=== PATIENT | female | born 1980 | race Caucasian/White ===

== ENCOUNTER 2020-07-29 09:48 | Outpatient (CLI) | payer OTHER ==
[2020-07-29 14:10] LABS: Hemoglobin 14.6 g/dL (12.0-16.0); Mean Corpuscular HGB CONC 34.2 g/dL (32.0-36.0); Mean Platelet Volume 9.5 fL (7.4-10.4); Platelet Count 231 thou/uL (130-400); RBC Distribution Width 11.1 % (11.5-14.5); Red Blood Cell (RBC) Count 4.18 mill/uL (4.20-5.40); White Blood Cell (WBC) Count 6.8 thou/uL (4.8-10.8)
[2020-07-29 14:13] LABS: BHCG - Serum Negative (NEGATIVE); Pregs Control Background? CLEAR/WHITE (CLR/WHITE); Pregs Control Bar Appear? YES (CONTROL BAR)
[2020-07-30 12:01] LABS: SARS-CoV-2 MS2 Positive; SARS-CoV-2 N Gene Negative; SARS-CoV-2 S Gene Negative; SARS-CoV-2 by NAA Not Detected (NotDetected); SARS-CoV-2 orf1ab Negative
== END 2020-07-29 09:49 | disposition home or self-care (01) ==
LOC: LABBT 09:48
PROVIDERS: ATTEND Obstetrics & Gynecology
DX: Z01.812 Encounter for preprocedural laboratory examination (principal); N39.3 Stress incontinence (female) (male); S31.41XA Laceration without foreign body of vagina and vulva, initial encounter; Z20.828 Contact with and (suspected) exposure to other viral communicable diseases
CPT/HCPCS: 84703; 85027; 86850; 86900; 86901; 87635; U0003

== ENCOUNTER 2020-08-02 10:39 | Day surgery (SDC) | payer OTHER ==
[2020-08-01 12:49] VITALS: BMI 21.9
--- NOTE | 2020-08-02 05:36 | HP ---
REASON FOR ADMISSION: Persistent weakness of perineal body with ulceration at area of old obstetrical laceration. PROCEDURE: Posterior repair with revision of obstetrical laceration. HISTORY OF PRESENT ILLNESS: Ms. Lin is a 40-year-old 2, para 2, status post x2, who has had an area of ulceration that has not healed despite conservative medical management for greater than five years. She desires definitive surgical management. The patient also requested a risk reducing salpingectomy at this time. She was denied secondary to being adopted and having no known family history of ovarian or breast cancer. [employer] HISTORY: As noted. Positive history of dysplasia. Most recent Pap was negative. PAST SURGICAL HISTORY: None. MEDICAL HISTORY: Anxiety. SOCIAL HISTORY: Denies tobacco, alcohol, or drug abuse. MEDICATIONS: 1. Effexor. 2. Celebrex. ALLERGIES: NONE. PHYSICAL EXAMINATION: GENERAL: White female. VITAL SIGNS: 5 feet 2, 131, BMI 24. Blood pressure 132/80, pulse 80, and respirations 18. HEENT: Within normal limits. LUNGS: Clear to auscultation bilaterally. HEART: Regular rhythm. BREASTS: Without masses bilaterally, status post augmentation. ABDOMEN: Soft, nontender. No rebound or guarding. GENITOURINARY: Vulva, without lesions. Vagina, patient has a persistent perineal laxity and a tear measuring 3 x 5 cm. It is ulcerated and axially oriented. Cervix is parous. Uterus is anteverted, 4-week size. Adnexa, no masses bilaterally. EXTREMITIES: No clubbing, cyanosis, or edema. IMPRESSION: Persistent perineal laxity and ulceration from an old obstetrical laceration. PLAN: Perineorrhaphy, possible posterior repair and revision of obstetrical laceration. Patient understands risks and benefits of procedure, including possible persistence and recurrence and prolonged need for avoiding penetrating vaginal intercourse postoperatively. We will administer appropriate antibiotic and DVT prophylaxis. Job ID: [id number]
[2020-08-02] MEDS ORDERED: Fentanyl 250 MCG/5 ML VIAL ONE (11:17)
[2020-08-02] MEDS ORDERED: Gabapentin 300 MG CAP ONE (11:25)
[2020-08-02] MEDS ORDERED: Famotidine/PF 20 mg/2ml Vial ONE (11:25)
[2020-08-02] MEDS ORDERED: CeleCOXIB 100 MG CAP ONE (11:25)
[2020-08-02] MEDS ORDERED: Lidocaine 1% w/Epinephrine 1:100K 20 ML VIAL ONE (12:09)
[2020-08-02] MEDS ORDERED: PROPOFOL 200 MG/20 ML VIAL ONE (12:37)
[2020-08-02] MEDS ORDERED: Lidocaine 1% PF 5 ML VIAL ONE (12:37)
[2020-08-02] MEDS ORDERED: PHENYLEPHRINE-NS 100 MCG/ML 10 ML SYRINGE ONE (12:37)
[2020-08-02] MEDS ORDERED: Dexamethasone 20 MG/5 ML VIAL ONE (12:37)
[2020-08-02] MEDS ORDERED: Ondansetron PF 4 MG/2 ML Vial ONE (12:37)
--- NOTE | 2020-08-02 18:39 | OP ---
DATE OF PROCEDURE: 08/02/2020 PREOPERATIVE DIAGNOSIS: Persistent ulceration of old obstetrical laceration. POSTOPERATIVE DIAGNOSIS: Persistent ulceration of old obstetrical laceration. PROCEDURE PERFORMED: Revision of OB laceration with perineorrhaphy. BOTTOM WHEELER: Janie Sahni PA-C ANESTHESIA: General endotracheal. ESTIMATED BLOOD LOSS: Less than 50 mL. COMPLICATIONS: None. MEDICATIONS: 2 g Ancef preincision. OPERATIVE FINDINGS: 1. Small 3 x 5 mm persistent ulceration at the level of the hymenal ring in the perineal body, excised. 2. Good reapproximation of the vaginal mucosa and reapproximation of perineal body. DISPOSITION: Recovery room in good condition. DESCRIPTION OF PROCEDURE: After obtaining appropriate informed consent, the patient was taken to the operating room with general endotracheal achieved without difficulty. She was prepped and draped in Dario stirrups. Findings as noted in the operative findings were noted. The area for the elliptical area to be excised was delineated using a skin marker and then excised using a 15 blade, undermining the area well. Perineal body was noted to be lax as well, and dissection was carried out laterally with that. The deep tissue and perineal body were pulled back together in a running continuous manner using a 3-0 Monocryl from right to left. Once this reapproximation was performed, and attention had been taken off the mucosa. The mucosa was closed in a running subcuticular manner from left to right perpendicular to the ellipses axis line, completely reapproximating the vaginal mucosa. Approximately 20 mL of lidocaine with epinephrine was injected for hemostasis and analgesia. The patient tolerated the procedure well. Counts were correct, and she was taken to recovery room in good condition. Job ID: [id number]
== END 2020-08-02 14:55 | disposition home or self-care (01) ==
LOC: SDC 10:39
PROVIDERS: ATTEND Obstetrics & Gynecology
PROC: 0HQ9XZZ Repair Perineum Skin, External Approach (ICD-10-PCS; principal; 2020-08-02)
DX: N81.89 Other female genital prolapse (principal); N39.3 Stress incontinence (female) (male); F41.9 Anxiety disorder, unspecified; F90.9 Attention-deficit hyperactivity disorder, unspecified type; Z79.899 Other long term (current) drug therapy; Z87.891 Personal history of nicotine dependence
CPT/HCPCS: 88305; J0690; J1100; J2405; J2704; J3010; S0028